=== PATIENT | female | born 1945 | race Caucasian/White ===

== ENCOUNTER 2021-08-05 07:30 | Day surgery (SDC) | payer MEDICARE, SELFPAY ==
[2021-07-29 10:44] VITALS: BMI 37.8
--- NOTE | 2021-08-01 13:42 | MHC.SHP ---
Pre-Procedural Eval Section A Date of Service: 08/01/21 The patient is an INPATIENT: No Changes since office visit: No Cold of Flu in the past 2 weeks, No New Medical Problems, No Changes in Medication and No Patient answered all questions The History & Physical has been completed within 30 days and I have reviewed it.: Yes Section B Chief Complaint: cataract right eye Allergies: Allergies Allergy/AdvReac Type Severity Reaction Status Date / Time amoxicillin Allergy Hives Verified 07/29/21 10:31 clindamycin Allergy Hives Verified 07/29/21 10:31 levofloxacin Allergy Hives Verified 07/29/21 10:31 Plan Diagnosis/Plan: Unchanged I have reviewed the history and physical and performed a pertinent physical examination on my patient. No changes have occurred unless specified.
--- NOTE | 2021-08-02 13:19 | P.CONAN_ITS ---
Documented by User: Marjan Richard NP 08/02/21 13:20 HPI - Anesthesia Eval Consult details Narrative: 75yo F for Right Cataract Extraction IOL Insertion PCP cleared No prev cataract on record [facility] Past Medical History Medical History (Updated 07/29/21 @ 10:48 by Demetrice Pineda, BRIGHT) Anxiety and depression Arthritis Cataract Elevated cholesterol HTN (hypertension) Low back pain Sciatica Surgical History Surgical History (Updated 07/29/21 @ 10:56 by Demetrice Pineda RN) Hx of appendectomy Hx of bilateral hip replacements Hx of colonoscopy Hx of tubal ligation Social History Social History Patient Tobacco Use Status: Never used Tobacco Are you DNR?: No Advance Directives: No Advance Directives Information Provided: No (mailed info) Advance Directives on File: No Meds Allergies Allergy/AdvReac Type Severity Reaction Status Date / Time amoxicillin Allergy Hives Verified 08/05/21 08:18 clindamycin Allergy Hives Verified 08/05/21 08:18 levofloxacin Allergy Hives Verified 08/05/21 08:18 Home Medications Medication Instructions Recorded Confirmed Last Taken Type acetaminophen-codeine PRN 07/29/21 07/29/21 Unknown History amlodipine 10 mg tablet 10 mg PO DAILY 07/29/21 07/29/21 Unknown History lovastatin 20 mg tablet 20 mg PO QPM 07/29/21 07/29/21 Unknown History metoprolol succinate 25 mg 25 mg PO BEDTIME 07/29/21 07/29/21 08/05/21 06:15 History tablet,extended release 24 hr mirtazapine 30 mg tablet 30 mg PO BEDTIME 07/29/21 07/29/21 Unknown History sertraline 50 mg tablet 75 mg PO DAILY 07/29/21 07/29/21 08/05/21 06:15 History spironolactone 25 mg tablet 25 mg PO DAILY 07/29/21 07/29/21 Unknown History Exam Exam Date and Time: August 02, 2021 1319 Height,Weight and Vital Signs: Height 5 ft 1 in Weight 90.718 kg Assessment and Plan Assessment Anesthesia Assessment: Chart Reviewed Documented by User: John Mackey MD 08/05/21 08:53 [facility] Past Medical History Medical History (Updated 07/29/21 @ 10:48 by Demetrice Pineda, BRIGHT) Anxiety and depression Arthritis Cataract Elevated cholesterol HTN (hypertension) Low back pain Sciatica Family History Family history of problems with anesthesia: No Surgical History Surgical History (Updated 07/29/21 @ 10:56 by Demetrice Pineda, BRIGHT) Hx of appendectomy Hx of bilateral hip replacements Hx of colonoscopy Hx of tubal ligation History of Problems with Anesthesia: No Social History Social History Patient Tobacco Use Status: Never used Tobacco Are you DNR?: No Advance Directives: No Advance Directives Information Provided: No (mailed info) Advance Directives on File: No Meds Allergies Allergy/AdvReac Type Severity Reaction Status Date / Time amoxicillin Allergy Hives Verified 08/05/21 08:18 clindamycin Allergy Hives Verified 08/05/21 08:18 levofloxacin Allergy Hives Verified 08/05/21 08:18 Home Medications Medication Instructions Recorded Confirmed Last Taken Type acetaminophen-codeine PRN 07/29/21 07/29/21 Unknown History amlodipine 10 mg tablet 10 mg PO DAILY 07/29/21 07/29/21 Unknown History lovastatin 20 mg tablet 20 mg PO QPM 07/29/21 07/29/21 Unknown History metoprolol succinate 25 mg 25 mg PO BEDTIME 07/29/21 07/29/21 08/05/21 06:15 History tablet,extended release 24 hr mirtazapine 30 mg tablet 30 mg PO BEDTIME 07/29/21 07/29/21 Unknown History sertraline 50 mg tablet 75 mg PO DAILY 07/29/21 07/29/21 08/05/21 06:15 History spironolactone 25 mg tablet 25 mg PO DAILY 07/29/21 07/29/21 Unknown History Exam Airway Mallampati Class: II TM Dist: >3cm Neck ROM: Full Loose/Missing/Broken Teeth: Yes Heart: rrr+[id number] Lungs: cta b/l Assessment and Plan Assessment Anesthesia Assessment: Anesthesia Plan Discussed Final Anesthetic Review Family History of Problems with Anesthesia: No History of Problems with Anesthesia: No NPO: Yes ASA Class: III Final Preanesthetic Review: No Changes in Pt Med Stat, Meds/Allgs Chart Reviewed, Consent Obtained/Reviewed and Anes Risks/Benef Reviewed Patient Risk: Intermediate Procedure Risk: Low Assessment/Block/Sedation in SS: Assess/Block/Sedation-SS Anesthetic Plan Anesthetic Plan: MAC: and Agree w/ Assess. and Plan Disposition: Standard PACU
[2021-08-05 08:30] VITALS: BP 156/87; PULSE 94; RESP 16; TEMP 36.2; O2SAT 100
[2021-08-05] MEDS: Tetracaine HCl/PF 0.5% Oph Sol 4 ML DROPS 1 DROP EYE-RIGHT (08:38)
[2021-08-05] MEDS: Tropicamide 1 % Ophth Sol 3 ML BTL 1 DROP EYE-RIGHT ×3 (08:40→08:52)
[2021-08-05] MEDS: Lactated Ringers 500 ML 50 ML IV (08:42)
[2021-08-05] MEDS: Phenylephrine HCL 2.5% Oph SoL 2 ML BOTTLE 1 DROP EYE-RIGHT ×3 (08:44→08:56)
--- NOTE | 2021-08-05 09:42 | HO.PNOPHT ---
Ophthalmology Procedure Procedure Date of Service: 08/05/21 Ophthalmology Viscoelastic: Healon Duet Dual Pack Pro Ophthalmology Lenses: TECNIS XCB00 (33) Procedure Notes: PREOPERATIVE DIAGNOSIS: Decreased visual acuity right eye secondary to cataract POSTOPERATIVE DIAGNOSIS: Same PROCEDURE: Right cataract extraction with intraocular lens insertion SURGEON: Ervin Rg M.D. ANESTHESIA: Topical/MAC ESTIMATED BLOOD LOSS: None COMPLICATIONS: None After obtaining informed consent, the patient was brought to the operating room suite and placed in the supine position. After adequate sedation per anesthesia, topical drops of Tetracaine were given to the right eye. The eye was then prepped and draped in the usual sterile fashion. The operating room microscope was then positioned over the operative eye and a lid speculum placed. A paracentesis was created. Viscoelastic was then instilled into the anterior chamber. A three plane incision was then created temporally, utilizing a 2.85 mm keratome. Capsulotomy forceps were then utilized to create a circular tear capsulotomy. Hydrodissection and hydrodelineation were carried out until adequate mobilization of the nucleus occurred. Phacoemulsification was then utilized to remove the dense central nucleus followed by removal of the cortical material utilizing the automated aspiration irrigation unit. Viscoelastic was instilled into the posterior capsular bag followed by placement of a posterior chamber intraocular lens without difficulty. The residual Viscoelastic was then removed utilizing the automated IA machine. The wound was checked and found to be watertight. The patient tolerated the procedure well and the lid speculum was removed. Intracameral injection of Vigamox 0.1 mL followed by a subtenon injection of Kenalog-40 0.2 mL were administered. The patient will be seen in the a.m.
[2021-08-05 10:07] VITALS: BP 143/83; PULSE 80; RESP 12; TEMP 36.9; O2SAT 98
== END 2021-08-05 10:31 | disposition home or self-care (01) ==
PROVIDERS: PCP Internal Medicine; Visit Provider Ophthalmology
PROC: (CPT 66985; principal; 2021-08-05 09:30)
DX: H25.11 Age-related nuclear cataract, right eye (principal); H54.7 Unspecified visual loss; H40.213 Acute angle-closure glaucoma, bilateral; H17.9 Unspecified corneal scar and opacity; I10 Essential (primary) hypertension; Z79.899 Other long term (current) drug therapy; Z88.0 Allergy status to penicillin; Z88.1 Allergy status to other antibiotic agents
CPT/HCPCS: 66984; J2250; J3010; J3300; V2632

== ENCOUNTER 2021-08-19 08:17 | Day surgery (SDC) | payer MEDICARE, SELFPAY ==
[2021-07-29 10:46] VITALS: BMI 37.8
--- NOTE | 2021-08-15 13:41 | MHC.SHP ---
Pre-Procedural Eval Section A Date of Service: 08/15/21 The patient is an INPATIENT: No Changes since office visit: No Cold of Flu in the past 2 weeks, No New Medical Problems, No Changes in Medication and No Patient answered all questions The History & Physical has been completed within 30 days and I have reviewed it.: Yes Section B Chief Complaint: cataract left eye Allergies: Allergies Allergy/AdvReac Type Severity Reaction Status Date / Time amoxicillin Allergy Hives Verified 08/05/21 08:18 clindamycin Allergy Hives Verified 08/05/21 08:18 levofloxacin Allergy Hives Verified 08/05/21 08:18 Plan Diagnosis/Plan: Unchanged I have reviewed the history and physical and performed a pertinent physical examination on my patient. No changes have occurred unless specified.
[2021-08-19 09:21] VITALS: BP 160/80; PULSE 78; RESP 18; TEMP 35.9; O2SAT 96
[2021-08-19] MEDS: Tetracaine HCl/PF 0.5% Oph Sol 4 ML DROPS 1 DROP EYE-LEFT (09:25)
[2021-08-19] MEDS: Lactated Ringers 500 ML 50 ML IVCONT (09:25)
[2021-08-19] MEDS: Tropicamide 1 % Ophth Sol 3 ML BTL 1 DROP EYE-LEFT ×3 (09:26→09:27)
[2021-08-19] MEDS: Phenylephrine HCL 2.5% Oph SoL 2 ML BOTTLE 1 DROP EYE-LEFT ×3 (09:26→09:27)
--- NOTE | 2021-08-19 09:40 | HO.ANESPROP2 ---
HPI - Anesthesia Eval Consult details Narrative: left eye cataract [facility] Past Medical History Medical History (Updated 07/29/21 @ 10:48 by Demetrice Pineda, BRIGHT) Anxiety and depression Arthritis Cataract Elevated cholesterol HTN (hypertension) Low back pain Sciatica Family History Family history of problems with anesthesia: No Surgical History Surgical History (Updated 07/29/21 @ 10:56 by Demetrice Pineda RN) Hx of appendectomy Hx of bilateral hip replacements Hx of colonoscopy Hx of tubal ligation History of Problems with Anesthesia: No Social History Social History Patient Tobacco Use Status: Never used Tobacco Are you DNR?: No Advance Directives: No Advance Directives Information Provided: No (mailed info) Advance Directives on File: No Meds Allergies Allergy/AdvReac Type Severity Reaction Status Date / Time amoxicillin Allergy Hives Verified 08/05/21 08:18 clindamycin Allergy Hives Verified 08/05/21 08:18 levofloxacin Allergy Hives Verified 08/05/21 08:18 Active Medications: Current Medications Lactated Ringer's (Lr) 500 mls @ 50 mls/hr IVCONT .Q10H KARLENE Last Admin: 08/19/21 09:25 Dose: 50 mls/hr Documented by: Povidone Iodine (Povidone Iodine 5 % Ophth Soln 30 Ml Bottle) 1 appl EYE-LEFT PREOP PRN PRN Reason: Pre-Op Surgical Implant Prophy Home Medications Medication Instructions Recorded Confirmed Last Taken Type acetaminophen-codeine PRN 07/29/21 07/29/21 Unknown History amlodipine 10 mg tablet 10 mg PO DAILY 07/29/21 07/29/21 Unknown History lovastatin 20 mg tablet 20 mg PO QPM 07/29/21 07/29/21 Unknown History metoprolol succinate 25 mg 25 mg PO BEDTIME 07/29/21 07/29/21 08/05/21 06:15 History tablet,extended release 24 hr mirtazapine 30 mg tablet 30 mg PO BEDTIME 07/29/21 07/29/21 Unknown History sertraline 50 mg tablet 75 mg PO DAILY 07/29/21 07/29/21 08/05/21 06:15 History spironolactone 25 mg tablet 25 mg PO DAILY 07/29/21 07/29/21 Unknown History Exam Exam Date and Time: August 19, 2021 0940 Height,Weight and Vital Signs: Height 5 ft 1 in Weight 90.718 kg Last Vital Signs Temp 96.7 F L 08/19/21 09:21 Pulse 78 08/19/21 09:21 Resp 18 08/19/21 09:21 BP 160/80 H 08/19/21 09:21 Pulse Ox 96 08/19/21 09:21 Airway Mallampati Class: III TM Dist: >3cm Neck ROM: Full Loose/Missing/Broken Teeth: No Heart: rrr+s1s2 Lungs: cta b/l Assessment and Plan Assessment Anesthesia Assessment: Anesthesia Plan Discussed and Chart Reviewed Final Anesthetic Review Family History of Problems with Anesthesia: No History of Problems with Anesthesia: No NPO: Yes ASA Class: III Final Preanesthetic Review: No Changes in Pt Med Stat, Meds/Allgs Chart Reviewed, Consent Obtained/Reviewed and Anes Risks/Benef Reviewed Patient Risk: Intermediate Procedure Risk: Low Assessment/Block/Sedation in SS: Assess/Block/Sedation-SS Anesthetic Plan Anesthetic Plan: MAC: and Agree w/ Assess. and Plan Disposition: Standard PACU
--- NOTE | 2021-08-19 10:40 | P.PCNO_ITS ---
Ophthalmology Procedure Procedure Date of Service: 08/19/21 Ophthalmology Viscoelastic: Healon Duet Dual Pack Pro Ophthalmology Lenses: TECNIS XCB00 (33) Procedure Notes: PREOPERATIVE DIAGNOSIS: Decreased visual acuity left eye s econdary to cataract POSTOPERATIVE DIAGNOSIS: Same PROCEDURE: Left cataract extraction with intraocular lens insertion SURGEON: Ervin Rg M.D. ANESTHESIA: Topical/MAC ESTIMATED BLOOD LOSS: None COMPLICATIONS: None After obtaining informed consent, the patient was brought to the operation room suite and placed in the supine position. After adequate sedation per anesthesia, topical drops of Tetracaine were given to the left eye. The eye was then prepped and draped in the usual sterile fashion. The operating room microscope was then positioned over the operative eye and a lid speculum placed. A paracentesis was created. Viscoelastic was then instilled into the anterior chamber. A three plane incision was then created temporally, utilizing a 2.85 mm keratome. Capsulotomy forceps were then utilized to create a circular tear capsulotomy. Hydrodissection and hydrodelineation were carried out until adequate mobilization of the nucleus occurred. Phacoemulsification was then utilized to remove the dense central nucleus followed by removal of the cortical material utilizing the automated aspiration irrigation unit. Viscoat elastic was instilled into the posterior capsular bag followed by placement of a posterior chamber intraocular lens without difficulty. The residual Viscoat elastic was then removed utilizing the automated IA machine. The wound was check and found to be watertight. The patient tolerated the procedure well and the lid speculum was removed. Intracameral injection of Vigamox 0.1 mL followed by a subtenon injection of Kenalog-40 0.2 mL were administered. The patient will be seen in the a.m.
[2021-08-19 11:02] VITALS: BP 145/84; PULSE 74; RESP 16; TEMP 36.5; O2SAT 97
== END 2021-08-19 11:15 | disposition home or self-care (01) ==
PROVIDERS: PCP Internal Medicine; Visit Provider Ophthalmology
PROC: (CPT 66985; principal; 2021-08-19 10:20)
DX: H25.12 Age-related nuclear cataract, left eye (principal); H40.213 Acute angle-closure glaucoma, bilateral; H54.7 Unspecified visual loss; I10 Essential (primary) hypertension; E78.00 Pure hypercholesterolemia, unspecified; Z79.899 Other long term (current) drug therapy; Z88.0 Allergy status to penicillin; Z88.1 Allergy status to other antibiotic agents
CPT/HCPCS: 66984; J2250; J3010; J3300; V2632